=== PATIENT | male | born 1970 ===

== ENCOUNTER 2021-08-22 09:32 | Emergency (ER) | payer BC ==
[2021-08-22 10:26] LABS: CORONAVIRUS COVID-19 NAA NEGATIVE (NEGATIVE)
[2021-08-22] MEDS ORDERED: Oseltamivir 75 MG Cap PO ONE (10:48)
--- NOTE | 2021-08-22 10:48 | EDM.PDOC ---
ED HPI GENERAL MEDICAL PROBLEM - General Chief Complaint: Fever Stated Complaint: FEVER WAS 102.3 CHILLS ACHES Time Seen by Provider: 08/22/21 10:25 Source of Information: Reports: Patient, RN, RN Notes Reviewed History Limitations: Reports: No Limitations - History of Present Illness INITIAL COMMENTS - FREE TEXT/NARRATIVE: Pt presents to ER with c/o fever, gen. body aches, and runny nose with mild cough. Pt reports onset of Sx's last evening. Hx of splenectomy. Onset: Sudden Duration: Constant Location: Reports: Generalized Quality: Reports: Ache Severity: Severe Improves with: Reports: None Worsens with: Reports: None Context: Reports: Sick Contact Associated Symptoms: Reports: No Other Symptoms Treatments DEPARTMENT MGR: Reports: Acetaminophen - Related Data Allergies Allergy/AdvReac Type Severity Reaction Status Date / Time No Known Allergies Allergy Verified 08/22/21 10:37 Home Meds: Home Meds . [No Known Home Meds] 08/22/21 [History] Past Medical History - Past Surgical History GI Surgical History: Reports: Other (See Below) (Splenectomy) Social & Family History - Family History Family Medical History: No Pertinent Family History - Living Situation & Occupation Living situation: Reports: with Family Occupation: Employed ED ROS GENERAL - Review of Systems Review Of Systems: Comprehensive ROS is negative, except as noted in HPI. ED EXAM, GENERAL - Physical Exam Exam: See Below Exam Limited By: No Limitations General Appearance: Alert, WD/WN, No Apparent Distress Eye Exam: Bilateral Eye: Normal Inspection Nose: Clear Rhinorrhea Throat/Mouth: Normal Inspection, Normal Lips, Normal Teeth, Normal Gums, Normal Oropharynx, Normal Voice, No Airway Compromise Head: Atraumatic, Normocephalic Neck: Normal Inspection, Supple, Non-Tender, Full Range of Motion. No: Lymphadenopathy (L), Lymphadenopathy (R) Respiratory/Chest: No Respiratory Distress, Lungs Clear, Normal Breath Sounds, No Accessory Muscle Use, Chest Non-Tender Cardiovascular: Regular Rate, Rhythm GI/Abdominal: Normal Bowel Sounds, Soft, Non-Tender Neurological: Alert, Oriented, No Motor/Sensory Deficits Psychiatric: Normal Mood Skin Exam: Warm, Dry, Intact, Normal Color, No Rash Course - Orders/Labs/Meds Labs: Laboratory Tests 08/22/21 Range/Units 09:35 Influenza Type A RNA Positive H (NEGATIVE) Influenza Type B RNA Negative (NEGATIVE) SARS-CoV-2 RNA (ARYA) Negative (NEGATIVE) Departure - Departure Time of Disposition: 10:46 Disposition: Home, Self-Care 01 Condition: Good Clinical Impression: Influenza A - Discharge Information *PRESCRIPTION DRUG MONITORING PROGRAM REVIEWED*: Not Applicable *COPY OF PRESCRIPTION DRUG MONITORING REPORT IN PATIENT [facility]IL[facility]: Not Applicable Instructions: Influenza, Adult Additional Instructions: Rx: Tamiflu 75mg Use Tylenol (Acetaminophen) and/or Ibuprofen (Motrin/Advil) as needed for fevers or body aches. Follow directions on label for dosing and precautions. Drink plenty of water, Pedialyte, or Gatorade. Follow up in clinic or return to ER if you develop any difficulty breathing.
[2021-08-22] MEDS ORDERED: Promethazine 25 MG Tab PO ONE (10:55)
[2021-08-22] MEDS: Ibuprofen 800 MG Tab PO ONE ×2 (11:02→11:06)
== END 2021-08-22 11:06 | disposition home or self-care (01) ==
LOC: DL.ED 09:32
DX: J10.1 Influenza due to other identified influenza virus with other respiratory manifestations (principal); Z20.822 Contact with and (suspected) exposure to COVID-19
CPT/HCPCS: 0240U; 99283; A9270